=== PATIENT | female | born 1980 ===

== ENCOUNTER 2017-04-05 00:05 | Emergency (ER) | payer OTHER ==
[2017-04-05] MEDS ORDERED: Albuterol-Ipratrop 3 mg / 0.5 (3 ml) UD ONE ×2 (00:22→00:42)
--- NOTE | 2017-04-05 00:22 | C.PDOC ---
History Of Present Illness Patient presents to the emergency room with complaints of shortness of breath that began today. Patient is 14 weeks . There are no exacerbating or relieving factors. Patient denies any chest pain, headaches, dizziness, nausea, vomiting, or any other complaints. Time Seen by Provider: 04/05/17 00:22 Chief Complaint (Nursing): Shortness Of Breath History Per: Patient History/Exam Limitations: no limitations Onset/Duration Of Symptoms: Hrs Current Symptoms Are (Timing): Still Present Quality: denies: "Pain" Current Respiratory Medications: See Home Med List Severity: Moderate Pain Scale Rating Of: 4 Associated Symptoms: denies: Fever, Chills, Chest Pain, Dizziness Recent travel outside of the [place]: No Past Medical History Reviewed: Historical Data, Nursing Documentation, Vital Signs Vital Signs: Last Vital Signs Temp 98.6 F 04/05/17 01:38 Pulse 103 H 04/05/17 01:38 Resp 16 04/05/17 01:38 BP 117/77 04/05/17 01:38 Pulse Ox 98 04/05/17 02:02 Family History: States: No Known Family Hx Review Of Systems Constitutional: Negative for: Fever, Chills Cardiovascular: Negative for: Chest Pain Respiratory: Positive for: Shortness of Breath Gastrointestinal: Negative for: Nausea, Vomiting, Diarrhea Neurological: Negative for: Headache, Dizziness Physical Exam - Physical Exam Appears: Non-toxic Skin: Warm, Dry, No Rash Eye(s): bilateral: Normal Inspection Oral Mucosa: Moist Neck: Normal ROM, No Midline Cervical Tenderness, No Paracervical Tenderness, Supple Chest: Symmetrical, No Deformity, No Tenderness Cardiovascular: Rhythm Regular Respiratory: No Rales, No Rhonchi, Wheezing Gastrointestinal/Abdominal: Soft, No Tenderness, No Guarding, No Rebound Back: No CVA Tenderness, No Vertebral Tenderness Extremity: Normal ROM, No Tenderness Neurological/Psych: Oriented x3, Normal Speech, Normal Cognition ED Course And Treatment O2 Sat by Pulse Oximetry: 98 Disposition Counseled Patient/Family Regarding: Studies Performed, Diagnosis, Need For Followup, Rx Given - Disposition Disposition: HOME/ ROUTINE Disposition Time: 00:22 Condition: FAIR Prescriptions: Albuterol HFA [Ventolin HFA 90 mcg/actuation (8 g)] 2 puff IH [id number] #1 puff Albuterol 0.083% [Albuterol Sulfate 3 Ml] 3 ml IH QID PRN #50 neb PRN Reason: asthma Prednisone [Deltasone] 20 mg PO DAILY #5 tablet Instructions: Asthma (DC) - Clinical Impression Clinical Impression: Asthma exacerbation - Scribe Statement The provider has reviewed the documentation as recorded by the Scribe Jhonatan Abel All medical record entries made by the Malloryibe were at my direction and personally dictated by me. I have reviewed the chart and agree that the record accurately reflects my personal performance of the history, physical exam, medical decision making, and the department course for this patient. I have also personally directed, reviewed, and agree with the discharge instructions and disposition.
[2017-04-05 00:27] VITALS: RESP 16
[2017-04-05] MEDS: Albuterol-Ipratrop 3 mg / 0.5 (3 ml) UD IH SCH ×3 (00:30→01:06)
[2017-04-05 01:40] VITALS: BP 117/77; PULSE 103; TEMP 98.6
[2017-04-05 02:00] VITALS: O2SAT 98
== END 2017-04-05 02:10 | disposition home or self-care (01) ==
LOC: C.ER 00:05
DX: O99.512 Diseases of the respiratory system complicating pregnancy, second trimester (principal); J45.901 Unspecified asthma with (acute) exacerbation; Z3A.14 14 weeks gestation of pregnancy

== ENCOUNTER 2018-07-30 15:37 | Emergency (ER) | payer MEDICAID, OTHER ==
[2018-07-30 15:48] VITALS: RESP 18
--- NOTE | 2018-07-30 16:16 | C.PDOC ---
History Of Present Illness 38 y/o female with PMHx of gastroesophageal reflux presents to the ED complaining of reflux symptoms on and off for the last 3 weeks. Patient was seen by PMD who prescribed her omeprazole daily and referred her to GI. She has an appointment with GI at the end of August. Patient states symptoms are worse at night, when lying supine, and often keep her up at night, but she never has symptoms during the day. Today around noon patient ate some fried plantains and eggs. 2 hours later she developed burning sensation in the epigastrium radiating up into her chest and back. She reports severe discomfort. States she made herself vomit and then felt better. No fever, chills , bloating, or gas. Denies any diarrhea or constipation. Time Seen by Provider: 07/30/18 16:02 Chief Complaint (Nursing): Chest Pain History Per: Patient History/Exam Limitations: no limitations Onset/Duration Of Symptoms: Days Current Symptoms Are (Timing): Worse Context: Food Quality: Burning Past Medical History Reviewed: Historical Data, Nursing Documentation, Vital Signs Vital Signs: Last Vital Signs Temp 98.3 F 07/30/18 15:43 Pulse 90 07/30/18 15:43 Resp 18 07/30/18 15:43 BP 121/81 07/30/18 15:43 Pulse Ox 98 07/30/18 17:01 - Medical History PMH: Asthma, GERD Surgical History: Tonsillectomy Family History: States: No Known Family Hx - Social History Hx Alcohol Use: No Hx Substance Use: No - Immunization History Hx Tetanus Toxoid Vaccination: No Hx Influenza Vaccination: No Hx Pneumococcal Vaccination: No Review Of Systems Except As Marked, All Systems Reviewed And Found Negative. Constitutional: Negative for: Fever, Chills Eyes: Negative for: Vision Change Cardiovascular: Positive for: Chest Pain. Negative for: Palpitations Respiratory: Negative for: Cough, Shortness of Breath Gastrointestinal: Positive for: Nausea, Vomiting, Abdominal Pain. Negative for : Diarrhea, Constipation Neurological: Negative for: Weakness, Numbness, Dizziness Physical Exam - Physical Exam Appears: Non-toxic, No Acute Distress Skin: Normal Color, Warm, Dry Head: Atraumatic, Normacephalic Eye(s): bilateral: Normal Inspection, PERRL, EOMI Neck: Normal ROM Chest: Symmetrical, No Tenderness Cardiovascular: Rhythm Regular, No Murmur Respiratory: Normal Breath Sounds, No Rales, No Rhonchi, No Wheezing Gastrointestinal/Abdominal: Soft, Tenderness (mild epigastric discomfort on palpation), No Guarding, No Rebound Back: Normal Inspection, No CVA Tenderness Extremity: Bilateral: Atraumatic, Normal Color And Temperature, Normal ROM Neurological/Psych: Oriented x3, Normal Speech ED Course And Treatment - Laboratory Results Result Diagrams: 07/30/18 17:03 07/30/18 17:03 Lab Interpretation: No Acute Changes ECG: Interpreted By Me, Viewed By Me ECG Rhythm: Sinus Rhythm ECG Interpretation: Normal O2 Sat by Pulse Oximetry: 98 (RA) Pulse Ox Interpretation: Normal - CT Scan/US Us Abdomen, Complete Other Rad Studies (CT/US): Read By Radiologist, Radiology Report Reviewed CT/US Interpretation: Accession No. : [id number]. Patient Name / ID : DOMINIC PLATA / [id number]. Exam Date : 07/30/2018 16:27:40 ( Approved ). Study Comment : Sex / Age : F / 38Y. Creator : Dell Nava MD. Dictator : Dell Nava MD. Manager Payment : [employer] Workflow Consultant : Dell Nava MD. Approver2 : Report Date : 07/30/2018 16:51:22. My Comment : . Date of service: 07/30/2018. HISTORY: abd pain. COMPARISON: None. TECHNIQUE: Sonographic evaluation of the abdomen. FINDINGS: LIVER: Measures 14.95 cm. Normal echogenicity of the liver parenchyma. No mass. No intrahepatic bile duct dilatation. Normal portal venous directional blood flow. GALLBLADDER: Cholelithiasis identified minimally layering within the dependent gallbladder with normal mural thickness and no pericholecystic fluid collection or reported sonographic Lanier sign. COMMON BILE DUCT: Measures 3.9 mm. No stones. No dilatation. PANCREAS: Unremarkable as visualized. No mass. No ductal dilatation. RIGHT KIDNEY: Measures 11.4cm. Normal echogenicity. No calculus, mass, or hydronephrosis. LEFT KIDNEY: Measures 12.6cm. Normal echogenicity. No calculus, mass, or hydronephrosis. SPLEEN: Normal in size and contour 8.6. No mass. AORTA: No aneurysmal dilatation. IVC : Unremarkable. OTHER FINDINGS: None. IMPRESSION: Cholelithiasis within a mildly distended gallbladder with the exam otherwise unremarkable. No acute gallbladder findings to suggest cholecystitis at this time. Normal common bile duct caliber. Reevaluation Time: 18:06 Reassessment Condition: Unchanged (No change after Reglan. Treated with Mylanta 30ml po.) Medical Decision Making Medical Decision Making: Initial Plan: --EKG --CMP --Lipase --CBC --Urine preg --Abdominal US --Reglan 10 mg IVP --Reassess and dispo Disposition Counseled Patient/Family Regarding: Studies Performed, Diagnosis, Need For Followup - Disposition Referrals: Abiodun Cao MD [Staff Provider] - Disposition: HOME/ ROUTINE Disposition Time: 18:10 Condition: STABLE Additional Instructions: Take 2 tablespoons of Maalox or Mylanta several times a day as needed. Continue taking the Omeprazole as prescribed. Instructions: Acid Reflux (Gastroesophageal Reflux Disease), Adult (DC) Forms: [employer] [facility] (Armenian) - Clinical Impression Clinical Impression: GERD (gastroesophageal reflux disease) - Scribe Statement The provider has reviewed the documentation as recorded by the Scribe (Chelita Rodriguez) Provider Attestation: All medical record entries made by the Scribe were at my direction and personally dictated by me. I have reviewed the chart and agree that the record accurately reflects my personal performance of the history, physical exam, medical decision making, and the department course for this patient. I have also personally directed, reviewed, and agree with the discharge instructions and disposition.
--- NOTE | 2018-07-30 16:52 | US ---
Date of service: 07/30/2018 HISTORY: abd pain COMPARISON: None. TECHNIQUE: Sonographic evaluation of the abdomen. FINDINGS: LIVER: Measures 14.95 cm. Normal echogenicity of the liver parenchyma. No mass. No intrahepatic bile duct dilatation. Normal portal venous directional blood flow. GALLBLADDER: Cholelithiasis identified minimally layering within the dependent gallbladder with normal mural thickness and no pericholecystic fluid collection or reported sonographic Lanier sign. COMMON BILE DUCT: Measures 3.9 mm. No stones. No dilatation. PANCREAS: Unremarkable as visualized. No mass. No ductal dilatation. RIGHT KIDNEY: Measures 11.4cm. Normal echogenicity. No calculus, mass, or hydronephrosis. LEFT KIDNEY: Measures 12.6cm. Normal echogenicity. No calculus, mass, or hydronephrosis. SPLEEN: Normal in size and contour 8.6. No mass. AORTA: No aneurysmal dilatation. IVC: Unremarkable. OTHER FINDINGS: None. IMPRESSION: Cholelithiasis within a mildly distended gallbladder with the exam otherwise unremarkable. No acute gallbladder findings to suggest cholecystitis at this time. Normal common bile duct caliber.
[2018-07-30 17:07] LABS: BASO # 0.1 K/uL (0.0-0.2); BASO % 0.5 % (0.0-2.0); EOS # 0.1 K/uL (0.0-0.7); EOS % 1.3 % (0.0-4.0); HEMOGLOBIN 13.9 g/dL (11.0-16.0); LYMPH # 1.8 K/uL (1.0-4.3); LYMPH % 17.1 % (20.0-40.0); MEAN CELL VOLUME 83.7 fL (81.0-99.0); MEAN CORPUSCULAR HGB CONC 34.6 g/dL (33.0-37.0); MEAN PLATELET VOLUME 8.1 fL (7.2-11.7); MONO # 0.5 K/uL (0.0-0.8); MONO % 4.7 % (0.0-10.0); NEUT # 7.9 K/uL (1.8-7.0); NEUT % 76.4 % (50.0-75.0); RBC 4.79 Mil/uL (3.80-5.20); RED CELL DISTRIBUTION WIDTH 12.8 % (11.5-14.5); WHITE BLOOD COUNT 10.3 K/uL (4.8-10.8)
[2018-07-30 17:17] LABS: CALCIUM 9.1 mg/dl (8.6-10.4); GFR NON-AFRICAN AMERICAN > 60; LIPASE 65 U/L (23-300)
[2018-07-30 17:25] LABS: ALB/GLOB RATIO 1.2 (1.0-2.1); ALBUMIN 4.5 g/dL (3.5-5.0); ALT/SGPT 52 U/L (9-52); AST/SGOT 114 U/L (14-36); BLOOD UREA NITROGEN 12 mg/dL (7-17)
[2018-07-30] MEDS ORDERED: Alum-Mag Hydrox-Simethicone Susp (30 mL) PO STA (18:11)
[2018-07-30] MEDS ORDERED: Alum-Mag Hydrox-Simethicone Susp (30 mL) ONE (18:40)
[2018-07-30 18:52] VITALS: BP 116/80; PULSE 96; TEMP 98.9; O2SAT 99
--- NOTE | 2018-07-31 20:11 | CARD ---
APPROVED REPORT Date of service: 07/30/2018 EKG Measurement Heart [id number] <Conclusion> Normal sinus rhythm Normal ECG
== END 2018-07-30 18:51 | disposition home or self-care (01) ==
LOC: C.ER 15:37
DX: K21.9 Gastro-esophageal reflux disease without esophagitis (principal)